=== PATIENT | male | born 1995 | race Caucasian/White ===

== ENCOUNTER → 2017-08-31 | Outpatient (CLI) | payer OTHER ==
[~2017-08-31] VITALS: Ht 185.4 cm; Wt 104.8 kg
[~2017-08-31] MED LIST: GADOBUTROL 7.5 MMOL/7.5 ML (GADAVIST) VIAL IV ONE; IOHEXOL 300 MG/ML 50 ML (OMNIPAQUE 300) VIAL IV ONE
[2017-08-31 13:19] VITALS: BP 120/60
--- NOTE | 2017-08-31 13:57 | Diagnostic Imaging Report ---
EXAMINATION: Fluoroscopic guided joint injection/arthrogram- left. INDICATION: left shoulder pain, request for MR arthrogram of the shoulder is submitted. Fluoroscopy time: 17 seconds CONSENT: Informed consent was obtained from the patient. The risks, benefits, potential complications and alternatives were reviewed and all questions answered to the patient's satisfaction. PROCEDURE: After sterile preparation and draping, 1% lidocaine was utilized for local anesthesia. A 22 spinal needle is introduced into the glenohumeral joint under fluoroscopic guidance. After confirmation of proper positioning with intra-articular injection of, 12 ml of 1:150 concentration of Gadavist in normal saline is injected the into the joint. The patient tolerated the procedure well with no immediate complications. FINDINGS: Arthrogram demonstrates Normal distribution of contrast in the joint with no filling of the subacromial subdeltoid bursa seen. IMPRESSION: Successful fluoroscopic guided injection of diluted gadolinium into the left shoulder. MR arthrogram to follow. Dictated by: Dictated on workstation # [id number]
--- NOTE | 2017-08-31 16:02 | Diagnostic Imaging Report ---
PROCEDURE: MRI left joint upper extremity with contrast. TECHNIQUE: Multiplanar, multisequence contrast-enhanced MRI of the left upper extremity was accomplished. INDICATION: Left shoulder injury. 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 Also, acromiale can fuse up to the age of 25 years. There is no Hill-Sachs deformity. The acromioclavicular joint demonstrates no significant degenerative changes. There is good distention of the joint with contrast. There is contrast filling a gap of the posterior rim of the glenoid suggestive of posterior Bankart injury with probable bony component involving the posterior rim of the glenoid or at least the overlying periosteum. Other segments of the labrum appear intact. The long head of biceps tendon is within its groove and appears intact. The rotator cuff tendons including the subscapularis, the infraspinatus and the supraspinatus appear intact. The muscle bulk and signal are normal. IMPRESSION: There is a minimally displaced Bankart lesion with probable small osseous component of a posterior glenoid rim fracture. The degree of bone involvement can be better evaluated with a CT scan, if needed. Report faxed to Dr. Whitley at 4:02 p.m. 08/31/2017/cb Dictated by: Dictated on workstation # [id number]
== END ==
LOC: RAD 12:35
PROVIDERS: ATTEND Orthopaedic Surgery
DX: M25.512 Pain in left shoulder (principal)
CPT/HCPCS: 23350; 73040; 73222

== ENCOUNTER 2017-11-06 12:55 | Outpatient (RCR) | payer OTHER | END 2017-11-29 09:35 | disposition home or self-care (01) | PROVIDERS: ATTEND Orthopaedic Surgery | DX: S43.492D Other sprain of left shoulder joint, subsequent encounter (principal) ==